=== PATIENT | male | born 1980 | race Caucasian/White ===

== ENCOUNTER 2021-04-16 16:38 | Emergency (ER) | payer OTHER, SELFPAY ==
[2021-04-16 16:50] VITALS: BP 123/82; PULSE 63; RESP 18; TEMP 36.4; O2SAT 100
--- NOTE | 2021-04-16 16:50 | ED.URI ---
HPI - URI/Sore Throat General Chief Complaint: Upper Respiratory Infection Stated Complaint: no smell/no taste/cough Time Seen by Provider: 04/16/21 16:50 Source: patient Mode of arrival: ambulatory Limitations: no limitations History of Present Illness HPI Narrative: Gerald Evans is a 40 yo male who was vaccinated on 04/06 who know is not feeling well after 04/09. No states that he has no sense of taste but is looking around for a Covid test-states he is gone to 3 places they were unable to give him a test today Related Data Allergies Allergy/AdvReac Type Severity Reaction Status Date / Time NKDA Allergy Unknown Uncoded 03/10/03 14:30 NO KNOWN DRUG ALLERGIES Allergy Y Uncoded 03/10/03 15:18 (Class Allergy) Review of Systems Review of Systems: CONSTITUTIONAL: Denies fever, chills, sweats. EYES: Denies visual changes, redness, discharge. ENT: Denies rhinorrhea, congestion, sore throat, otalgia. States loss of sense of taste CARDIOVASCULAR: Denies chest pain, palpitations, edema. RESPIRATORY: Denies dyspnea, wheezing, cough GASTROINTESTINAL: Denies abdominal pain, nausea, vomiting, diarrhea. GENITOURINARY: Denies dysuria, hematuria, abnormal discharge SKIN: Denies rash or itching. NEUROLOGIC: Denies numbness, or focal weakness. PSYCHIATRIC: Denies anxiety or depression. [facility] Past Medical History Medical History No acute medical problems Social History Social History (Updated 04/16/21 @ 17:01 by Migdalia Mesa CNP) Smoking status: Former smoker Substance use: current Living arrangements: with roommate(s) Occupation/Education: occupation Gender identity (if verbalized by the patient): Male Comments At time of signature, I agree with nursing past medical, surgical, social and family history. There is no relevant family history pertinent to the presenting complaint. Exam Narrative: GENERAL: This is a well-nourished, well-developed patient, in no distress. HEAD: normocephalic, atraumatic. EYES: PERRL. Sclera clear/white. Vision is grossly intact. EARS: External ears normal, . Hearing grossly intact. NOSE: External nose normal without nasal discharge, nares without redness, no rhinorrhea. THROAT: Mucous membranes moist, posterior pharynx pink NECK: Neck supple, CARDIOVASCULAR: Regular rate and rhythm without murmurs, gallops, or rubs. RESPIRATORY: Clear to auscultation. Breath sounds equal bilaterally. No wheezes, rales, or rhonchi. GASTROINTESTINAL: Abdomen soft, SKIN: warm, intact with no suspicious lesions or rash, good texture and turgor. NEURO: awake, alert, and oriented to person, place and time. There were no obvious focal neurologic abnormalities. Steady gait EXTREMITIES: Normal range of motion. BACK: Nontender without deformity Course Course Emergency Course: Patient comes to [facility] for Covid test because he is loss of sense of taste even though people in his household including his daughters are positive Rapid Covid negative, PCR sent Vital Signs Vital signs: Vital Signs Temperature 97.5 F L 04/16/21 16:50 Pulse Rate 63 04/16/21 16:50 Respiratory Rate 18 04/16/21 16:50 Blood Pressure 123/82 04/16/21 16:50 Pulse Oximetry 100 04/16/21 16:50 Temperature 97.5 F L 04/16/21 16:50 Pulse Rate 63 04/16/21 16:50 Respiratory Rate 18 04/16/21 16:50 Blood Pressure 123/82 04/16/21 16:50 Pulse Oximetry 100 04/16/21 16:50 MDM - URI/Sore Throat Differential Diagnosis Differential diagnosis: Likely upper respiratory infection, sinusitis, viral infection, influenza, pharyngitis and other Lab Data Labs: Lab Results 04/16/21 Range/Units 16:58 POC SARS CoV-2 Ag Negative (Negative) Critical Care Time Critical Care Time Critical Care Time: No Discharge Plan Discharge Clinical Impression: Contact with and (suspected) exposure to covid-19 Patient Disposition: Home, Self-C
[2021-04-18 13:58] LABS: SARS-CoV-2 RNA PCR Positive
== END 2021-04-16 17:22 | disposition home or self-care (01) ==
PROVIDERS: Emergency Provider Nurse Practitioner
DX: U07.1 COVID-19 (principal); Z87.891 Personal history of nicotine dependence
CPT/HCPCS: 87426; 99213; C9803; G0463; U0003; U0005

== ENCOUNTER 2022-12-12 16:26 | Emergency (ER) | payer OTHER, SELFPAY ==
--- NOTE | 2022-12-12 16:27 | ED.DENTAL ---
HPI - Dental/Oral General Chief complaint: Dental/Oral Stated complaint: Dental Pain Time Seen by Provider: 12/12/22 16:27 Source: patient Mode of arrival: ambulatory Limitations: no limitations History of Present Illness HPI Narrative: Gerald is a 42-year-old male patient presenting to the clinic today with complaints of dental pain times 1-2 days. He reports he was eating a m&m in the other night and felt as though this chipped his tooth. Has contacted his dentist and thinks it may be infected however he is not able to get in for 2 weeks Related Data Allergies Allergy/AdvReac Type Severity Reaction Status Date / Time NKDA Allergy Unknown Uncoded 03/10/03 14:30 NO KNOWN DRUG ALLERGIES Allergy Y Uncoded 03/10/03 15:18 (Class Allergy) Review of Systems Review of Systems: Pertinent positives per HPI. Patient denies any fever, chills, rash, headache, visual changes, dizziness, cough, runny nose, sore throat, shortness of breath, chest pain, palpitations, nausea, vomiting, diarrhea, constipation, abdominal pain, or any urinary issues. PMFSH Past Medical History Medical History No acute medical problems Social History Social History Smoking status: Former smoker Substance use: current Living arrangements: with roommate(s) Occupation/Education: occupation Gender identity (if verbalized by the patient): Male Comments At the time of my signature, I reviewed and agree with the nursing past medical, surgical, social, and family history. There is no relevant family history pertinent to the patient complaint. Exam Narrative: General: Well-developed, well nourished, in no apparent distress Head: Normocephalic, atraumatic Eyes: Pupils equally round and reactive to light bilaterally, EOM intact, sclera and conjunctive clear, no discharge, lids normal Ears: TMs intact and clear, ear canals clear, no drainage, grossly hearing normal. Nose: Nares patent, no discharge, no inflammation, no sinus tenderness. Mouth: Oropharynx without lesions or masses, poor dentition, MMM. Number 18 dental pain-cavity with infection Neck: Supple, trachea midline, no enlargement of anterior or posterior cervical nodes, no thyroid masses or goiter palpable. Cardio: Regular rate and rhythm, s1 and s2 normal, no murmur appreciated. Resp: Clear to auscultation bilaterally anteriorly and posteriorly, no rhonchi, rales, wheezing or rubs Course Course Emergency Course: Portions of this record may have been created with voice recognition software. Level of Care: Express Care Visit Vital Signs Vital signs: Vital Signs Temperature 36.6 C 12/12/22 16:35 Pulse Rate 63 12/12/22 16:35 Respiratory Rate 16 12/12/22 16:35 Blood Pressure 132/73 12/12/22 16:35 Pulse Oximetry 100 12/12/22 16:35 Oxygen Delivery Room Air 12/12/22 16:35 Temperature 36.6 C 12/12/22 16:35 Pulse Rate 63 12/12/22 16:35 Respiratory Rate 16 12/12/22 16:35 Blood Pressure 132/73 12/12/22 16:35 Pulse Oximetry 100 12/12/22 16:35 Oxygen Delivery Room Air 12/12/22 16:35 Vital signs reviewed MDM - Dental/Oral MDM Narrative Medical decision making narrative: At the time of visit patient is resting comfortably on exam table. I suspect patient has a fractured tooth with a dental infection. Prescription for amoxicillin was sent to pharmacy. Supportive measures were discussed with the patient and he voiced understanding discharge instructions and agrees to treatment plan. Differential Diagnosis Differential diagnosis: Likely dental caries, toothache, dental abscess and fracture of tooth Discharge Plan Discharge Clinical Impression: Dental infection Patient Disposition: Home, Self-Care Condition: Stable Instructions: Antibiotic Form, Toothache (ED) Additional Instructions: May apply heating
[2022-12-12 16:35] VITALS: BP 132/73; PULSE 63; RESP 16; TEMP 36.6; O2SAT 100
== END 2022-12-12 16:43 | disposition home or self-care (01) ==
PROVIDERS: Emergency Provider Nurse Practitioner Family
DX: K04.7 Periapical abscess without sinus (principal); Z87.891 Personal history of nicotine dependence
CPT/HCPCS: 99213; G0463

== ENCOUNTER 2023-05-05 11:34 | Emergency (ER) | payer OTHER, SELFPAY ==
[2023-05-05 11:41] VITALS: BP 124/83; PULSE 87; RESP 18; TEMP 37.4; O2SAT 99
--- NOTE | 2023-05-05 11:58 | PC.NURSE ---
documentation completed per glory frye rn and reviewed
--- NOTE | 2023-05-05 12:02 | ED.DENTAL ---
HPI - Dental/Oral General Chief complaint: Dental/Oral Stated complaint: Dental Pain Time Seen by Provider: 05/05/23 11:45 Source: patient Mode of arrival: ambulatory Limitations: no limitations History of Present Illness HPI Narrative: Gerald is a 42-year-old male patient presenting to the clinic today with complaints of left lower jaw dental pain. He reports over the last few days his jaws become more swollen and thinks he may have a dental infection. Was seen back in January of this past year for a dental infection to the same tooth. Has not yet seen a dentist. No fever Related Data Allergies Allergy/AdvReac Type Severity Reaction Status Date / Time NKDA Allergy Unknown Uncoded 03/10/03 14:30 NO KNOWN DRUG ALLERGIES Allergy Y Uncoded 03/10/03 15:18 (Class Allergy) Review of Systems Review of Systems: Pertinent positives per HPI. Patient denies any fever, chills, rash, headache, visual changes, dizziness, cough, runny nose, sore throat, shortness of breath, chest pain, palpitations, nausea, vomiting, diarrhea, constipation, abdominal pain, or any urinary issues. PMFSH Past Medical History Medical History No acute medical problems Social History Social History Smoking status: Former smoker Substance use: current Living arrangements: with roommate(s) Occupation/Education: occupation Gender identity (if verbalized by the patient): Male Comments At the time of my signature, I reviewed and agree with the nursing past medical, surgical, social, and family history. There is no relevant family history pertinent to the patient complaint. Exam Narrative: General: Well-developed, well nourished, in no apparent distress Head: Normocephalic, atraumatic Eyes: Pupils equally round and reactive to light bilaterally, EOM intact, sclera and conjunctive clear, no discharge, lids normal Ears: TMs intact and clear, ear canals clear, no drainage, grossly hearing normal. Nose: Nares patent, no discharge, no inflammation, no sinus tenderness. Mouth: Oropharynx without lesions or masses, poor dentition, MMM. Decayed 18 with dental abscess-swelling noted into the jaw and neck Neck: Supple, trachea midline, no enlargement of anterior or posterior cervical nodes, no thyroid masses or goiter palpable. Cardio: Regular rate and rhythm, s1 and s2 normal, no murmur appreciated. Resp: Clear to auscultation bilaterally anteriorly and posteriorly, no rhonchi, rales, wheezing or rubs Course Course Emergency Course: Portions of this record may have been created with voice recognition software. Level of Care: Express Care Visit Vital Signs Vital signs: Vital Signs Temperature 37.4 C 05/05/23 11:41 Pulse Rate 87 05/05/23 11:41 Respiratory Rate 18 05/05/23 11:41 Blood Pressure 124/83 05/05/23 11:41 Pulse Oximetry 99 05/05/23 11:41 Oxygen Delivery Room Air 05/05/23 11:41 Temperature 37.4 C 05/05/23 11:41 Pulse Rate 87 05/05/23 11:41 Respiratory Rate 18 05/05/23 11:41 Blood Pressure 124/83 05/05/23 11:41 Pulse Oximetry 99 05/05/23 11:41 Oxygen Delivery Room Air 05/05/23 11:41 Vital signs reviewed MDM - Dental/Oral MDM Narrative Medical decision making narrative: At the time of visit patient is resting comfortably on the exam table. I suspect patient has a dental abscess. Offered to do aspiration drainage of the dental abscess and patient declined at this time. Will place patient on Augmentin supportive measures were discussed with the patient and he voiced understanding of discharge instructions agrees to treatment plan. Red flag symptoms were reviewed with the patient. Differential Diagnosis Differential diagnosis: Likely gingival abscess, dental caries, toothache, dental abscess, fracture of tooth and aphthous ulcer Discharge Plan Discharg
== END 2023-05-05 12:11 | disposition home or self-care (01) ==
PROVIDERS: Emergency Provider Nurse Practitioner Family
DX: K04.7 Periapical abscess without sinus (principal); Z87.891 Personal history of nicotine dependence
CPT/HCPCS: 99213; G0463

== ENCOUNTER 2023-05-06 11:40 | Emergency (ER) | payer OTHER, SELFPAY ==
--- NOTE | 2023-05-06 11:43 | ED.DENTAL ---
HPI - Dental/Oral General Chief complaint: Dental/Oral Stated complaint: Dental Pain Time Seen by Provider: 05/06/23 11:41 Source: patient Mode of arrival: ambulatory Limitations: no limitations History of Present Illness HPI Narrative: Mr. Mcintyre is a 42-year-old male patient presenting to the clinic today with complaints of dental abscess. I saw this patient yesterday for dental abscess and offered to drain the abscess and he declined at that time. He is returning today requesting it to be drained. Related Data Allergies Allergy/AdvReac Type Severity Reaction Status Date / Time No Known Allergies Allergy Verified 05/06/23 11:45 Review of Systems Review of Systems: Pertinent positives per HPI. Patient denies any fever, chills, rash, headache, visual changes, dizziness, cough, runny nose, sore throat, shortness of breath, chest pain, palpitations, nausea, vomiting, diarrhea, constipation, abdominal pain, or any urinary issues. PMFSH Past Medical History Medical History No acute medical problems Social History Social History Smoking status: Former smoker Substance use: current Living arrangements: with roommate(s) Occupation/Education: occupation Gender identity (if verbalized by the patient): Male Comments At the time of my signature, I reviewed and agree with the nursing past medical, surgical, social, and family history. There is no relevant family history pertinent to the patient complaint. Exam Narrative: General: Well-developed, well nourished, in no apparent distress Head: Normocephalic, atraumatic Eyes: Pupils equally round and reactive to light bilaterally, EOM intact, sclera and conjunctive clear, no discharge, lids normal Ears: TMs intact and clear, ear canals clear, no drainage, grossly hearing normal. Nose: Nares patent, no discharge, no inflammation, no sinus tenderness. Mouth: Oropharynx without lesions or masses, poor dentition, MMM. Fractured number 18 tooth with dental abscess-total abscess was worse appearing yesterday and has improved some today. Attempted aspiration of dental abscess without success. Neck: Supple, trachea midline, no enlargement of anterior or posterior cervical nodes, no thyroid masses or goiter palpable. Cardio: Regular rate and rhythm, s1 and s2 normal, no murmur appreciated. Resp: Clear to auscultation bilaterally anteriorly and posteriorly, no rhonchi, rales, wheezing or rubs Course Course Emergency Course: Portions of this record may have been created with voice recognition software. Level of Care: Express Care Visit Vital Signs Vital signs: Vital signs reviewed Procedures Abscess I/D Dental abscess: Date of Incision: 05/06/23 Abcess I&D Additional Comments: Attempted dental abscess aspiration using an 18 gauge needle and a 5 mL syringe to the left lower jaw posterior molar without success MDM - Dental/Oral MDM Narrative Medical decision making narrative: At the time of visit patient is resting comfortably on the exam table. Rocephin 1 g IM given in the clinic today. Patient is to continue Augmentin and call the dentist to be evaluated as soon as possible. Supportive measures were discussed with the patient he voiced understanding discharge instructions and agrees to treatment plan. Differential Diagnosis Differential diagnosis: Likely gingival abscess, dental caries, toothache and dental abscess Discharge Plan Discharge Clinical Impression: Dental abscess Patient Disposition: Home, Self-Care Condition: Stable Instructions: Antibiotic Form, Dental Abscess (ED) Additional Instructions: Attempted dental abscess drainage without success. Rocephin 1 g IM given in the clinic today Continue taking Augmentin as prescribed May take Tylenol/Motrin as needed for pain Follow-up with
[2023-05-06 11:45] VITALS: BP 127/78; PULSE 81; RESP 16; TEMP 37.1; O2SAT 99
[2023-05-06] MEDS: cefTRIAXone 1 GM, LIDOCAINE HCL 1% LOCAL INJ 2.1 ML IM (11:55)
== END 2023-05-06 12:04 | disposition home or self-care (01) ==
PROVIDERS: Emergency Provider Nurse Practitioner Family
DX: K04.7 Periapical abscess without sinus (principal); Z87.891 Personal history of nicotine dependence
CPT/HCPCS: 96372; 99213; G0463; J0696

== ENCOUNTER 2023-10-18 11:52 | Emergency (ER) | payer OTHER, SELFPAY ==
--- NOTE | 2023-10-18 11:59 | ED.DENTAL ---
HPI - Dental/Oral General Chief complaint: Dental/Oral Stated complaint: tooth pain left side Time Seen by Provider: 10/18/23 11:55 Source: patient Mode of arrival: ambulatory Limitations: no limitations History of Present Illness HPI Narrative: Patient is a 42-year-old male who presents with left lower dental pain that started yesterday. Patient has had broken tooth and infection in the past. Patient unable to see dentist at this time. Denies any ear pain, fever, chills, nausea, vomiting, diarrhea. Related Data Allergies Allergy/AdvReac Type Severity Reaction Status Date / Time No Known Allergies Allergy Verified 10/18/23 12:02 Review of Systems Review of Systems: All systems reviewed & are unremarkable except as noted in HPI and below Constitutional: Constitutional: Denies body ache(s), Denies fever(s), Denies headache(s), Denies malaise and Denies weakness Eyes: Eyes: Denies loss of vision ENT: Denies otalgia, Reports facial pain (jaw), Denies headache(s), Denies nasal discharge, Denies sinus pain and Denies sore throat Cardiovascular: Cardiovascular: Denies chest pain, Denies irregular heart rhythm and Denies dyspnea Respiratory: Respiratory: Denies dyspnea Gastrointestinal: Gastrointestinal: Denies abdominal pain, Denies melena, Denies hematochezia, Denies diarrhea, Denies nausea and Denies vomiting Musculoskeletal: Musculoskeletal: Denies back pain, Denies myalgias and Denies arthralgias Integumentary/Breasts: Skin/Breast: Denies pruritus and Denies rash Neurologic: Denies headache(s), Denies loss of vision and Denies weakness Psychiatric: Psychiatric: Reports no additional psychiatric complaints PMFSH Past Medical History Medical History No acute medical problems Social History Social History Smoking status: Former smoker Substance use: current Living arrangements: with roommate(s) Occupation/Education: occupation Gender identity (if verbalized by the patient): Male Comments At time of signature, agree with nursing past medical, surgical, social and family history. There is no relevant family history pertinent to the presenting complaint. Exam Const: General: cooperative, healthy appearing, comfortable, no acute distress and well nourished Nutritional Appearance: well nourished Orientation/consciousness: patient oriented x3 Limitations: no limitations HENMT: Head: normal to inspection, normocephalic and atraumatic Ears: hearing grossly normal bilaterally, external ears normal, TM's normal bilaterally and mastoids normal bilaterally Face/Nose/Sinus: Normal external nose present, normal facial exam and face symmetric Face and sinus: normal facial exam and face symmetric Mouth: Yes Normal oral and palatal mucosa present, Yes lip normal, Yes tongue normal, Yes Normal salivary glands and ducts present and Yes moist mucous membranes Teeth and gingiva: abnormal tooth and associated gingiva lower left second molar tender and dentin fractured and fair dentition Teeth image: 1. broken tooth Eyes: General: appearance normal, both eyes and all related structures Alignment and Position: alignment normal and position normal Periorbital: periorbital findings normal Eyelids: eyelids normal Pupils: Equal, round and reactive pupils present EOM: EOMs intact bilaterally Neck: Neck: normal visual inspection, full ROM, no lymphadenopathy and supple Chest: Chest palpation & inspection: normal inspection of the chest Resp: Effort & Inspection: normal respiratory effort and able to speak in complete sentences Auscultation: clear to auscultation bilaterally Cardio: Rate: regular rate Rhythm: regular rhythm Heart sounds: S1 normal heart sound present and S2 normal heart sound present GI: Inspection: normal to inspection Skin: General skin exam: normal color and no rashes or lesions n
[2023-10-18 12:03] VITALS: BP 150/81; PULSE 57; RESP 16; TEMP 37.1; O2SAT 99
== END 2023-10-18 12:33 | disposition home or self-care (01) ==
PROVIDERS: Emergency Provider Nurse Practitioner Family
DX: K04.7 Periapical abscess without sinus (principal); Z87.891 Personal history of nicotine dependence
CPT/HCPCS: 99213; G0463

== ENCOUNTER 2023-10-26 03:59 | Emergency (ER) | payer OTHER, SELFPAY ==
--- NOTE | ~2023-10-26 | CT_ITS ---
CT of the Abdomen and Pelvis: Indication: Abdominal pain Technique: 2.5 mm axial scans were obtained through the abdomen and pelvis following intravenous adm inistration of 100 cc of Omnipaque 350. Dose reduction technique was used on this scan by utilizing a utomated exposure control and iterative reconstruction technique. The dose-length product (DLP) was 7 81.39 mGy-cm. Findings: Scans through the lung bases are unremarkable. The liver, spleen, pancreas, gallbladder, adrenals and kidneys are within normal limits. No evidence of aortic aneurysm. No lymphadenopathy. No bowel obstruction or bowel wall thickening. There is no evidence to suggest acute appendicitis. Images through the pelvis were performed. Urinary bladder unremarkable. No pelvic mass seen. No ascit es. Small bilateral fat-containing hernias are present. Impression: Small bilateral fat-containing inguinal hernias. Reviewed, dictated and finalized at [facility]. CONTROLLER Impression: Small bilateral fat-containing inguinal hernias.
[2023-10-26 04:02] VITALS: BP 142/82; PULSE 88; RESP 16; TEMP 36.7; O2SAT 100
[2023-10-26 04:26] LABS: Basophils Percent Auto 0.2 % (0.2-1.2); Eosinophils Percent Auto 0.1 % (0-4.4); Hematocrit 38.8 % (42.0-52.0); Hemoglobin 12.8 g/dL (14.0-18.0); Immature Granulocyte Absolute 0.04 K/mm3 (0.00-0.031); Immature Granulocyte Percent A 0.4 % (0-0.5); Lymphocytes Absolute Auto 1.43 K/mm3 (0.9-3.2); Lymphocytes Percent Auto 13.3 % (18.3-44.2); Mean Corpuscular Hemoglobin 31.9 pg (26-34); Mean Corpuscular Volume 96.8 fl (80-100); Mean Platelet Volume 9.6 fl (7.4-10.4); Monocytes Absolute Auto 0.3 K/mm3 (0.1-0.6); Monocytes Percent Auto 2.6 % (2.6-8.5); Neutrophils Percent Auto 83.4 % (45.5-73.1); Platelet Count Result 334 k/mm3 (150-375); Red Blood Count 4.01 M/mm3 (4.6-6.20); Red Cell Distribution Width 12.2 % (11.5-14.5); White Blood Count 10.8 K/mm3 (4.5-10.0)
[2023-10-26 04:41] LABS: Appearance Urine Turbid (Clear); Bacteria Urine None Seen /hpf; Bilirubin Urine Negative (Negative); Blood Urine Trace (Negative); Color Urine Yellow (Yellow); Glucose Urine UA Negative (Negative); Ketones Urine 4+ mg/dL (Negative); Leukocyte Esterase Ur Negative LEU/UL (Negative); Mucus Urine Present /lpf; Need Manual Microscopic Reviewed; Nitrate Urine Negative (Negative); Protein Urine 1+ mg/dL (Negative); Specific Grav Ur 1.027 (1.001-1.035); Squamous Epithelial Cell Urine None seen /hpf (Few); Urobilinogen Urine 0.2 mg/dL (<2.0); WBC Urine 0-5 /hpf
[2023-10-26 04:43] LABS: Add Urine Microscopic? YES
--- NOTE | 2023-10-26 05:18 | ED.GENADULT ---
HPI - General Adult General Chief complaint: Nausea/Vomiting/Diarrhea Stated complaint: I think I have an ulcer, vomiting Time Seen by Provider: 10/26/23 05:02 History of Present Illness HPI narrative: Patient is a 43-year-old gentleman who presents emergency department with chief complaint of abdominal pain nausea vomiting. Patient reports that he is currently on Augmentin for a dental infection and 8 q.day elbow yesterday patient reports that started having nausea and vomiting immediately after eating and reports that he has pain in the epigastric region. The patient reports that he has not been able to keep anything down reports that he feels extremely dehydrated. Patient reports no prior abdominal surgeries reports no fever Related Data Allergies Allergy/AdvReac Type Severity Reaction Status Date / Time No Known Allergies Allergy Verified 10/18/23 12:02 Review of Systems Review of Systems: A 10 system review of systems was completed on the patient and is negative except for what is stated in the HPI. Nursing and ancillary documentation was reviewed. [facility] Past Medical History Medical History No acute medical problems Social History Social History Smoking status: Former smoker Substance use: current Living arrangements: with roommate(s) Occupation/Education: occupation Gender identity (if verbalized by the patient): Male Exam Narrative: GENERAL: Well-appearing, well-nourished, and in no acute distress. HEAD: Normocephalic, atraumatic. EYES: PERRLA and EOMI. ENT: Nares clear, no rhinorrhea or epistaxis. Mucous membranes moist. NECK: Supple. CHEST: Clear to auscultation. No respiratory distress. HEART: Regular rate and rhythm. No murmur heard. Normal peripheral pulses. ABDOMEN: Soft, tenderness to palpation in the epigastric region, nondistended, normal active bowel sounds. EXTREMITIES: Normal range of motion. No edema. SKIN: Warm, dry, no rash. NEURO: No focal deficits. Alert and oriented x3. PSYCH: Normal mood and affect. Course Vital Signs Vital signs: Vital Signs Temperature 36.7 C 10/26/23 04:02 Pulse Rate 88 10/26/23 04:02 Respiratory Rate 16 10/26/23 04:02 Blood Pressure 142/82 H 10/26/23 04:02 Pulse Oximetry 100 10/26/23 04:02 Oxygen Delivery Room Air 10/26/23 04:02 Temperature 36.7 C 10/26/23 04:02 Pulse Rate 88 10/26/23 04:02 Respiratory Rate 16 10/26/23 04:02 Blood Pressure 142/82 H 10/26/23 04:02 Pulse Oximetry 100 10/26/23 04:02 Oxygen Delivery Room Air 10/26/23 04:02 Medical Decision Making MDM Narrative Medical decision making narrative: Differential diagnosis is gastroenteritis, gastritis, colitis, diverticulitis Laboratory studies were obtained on the patient showed a white count 10.8 electrolytes within normal limits urinalysis showed 11-20 RBCs in the urine but otherwise no white blood cells CT scan of the abdomen pelvis showed no acute abnormality Patient received IV fluids antiemetics and antispasmodics. Patient be discharged home on Zofran Bentyl Protonix Vital Signs Vital Signs: Vital Signs Temperature 36.7 C 10/26/23 04:02 Pulse Rate 88 10/26/23 04:02 Respiratory Rate 16 10/26/23 04:02 Blood Pressure 142/82 H 10/26/23 04:02 Pulse Oximetry 100 10/26/23 04:02 Oxygen Delivery Room Air 10/26/23 04:02 Temperature 36.7 C 10/26/23 04:02 Pulse Rate 88 10/26/23 04:02 Respiratory Rate 16 10/26/23 04:02 Blood Pressure 142/82 H 10/26/23 04:02 Pulse Oximetry 100 10/26/23 04:02 Oxygen Delivery Room Air 10/26/23 04:02 Lab Data 10/26/23 04:13 10/26/23 04:13 Labs: Lab Results 10/26/23 Range/Units 04:13 WBC 10.8 H (4.5-10.0) K/mm3 RBC 4.01 L (4.6-6.20) M/mm3 Hgb 12.8 L (14.0-18.0) g/dL Hct 38.8
[2023-10-26] MEDS: PANTOPRAZOLE SODIUM IV 40 MG VIAL IV PUSH (05:22)
[2023-10-26] MEDS: ONDANSETRON INJ 4 MG/2 ML VIAL IV PUSH (05:22)
[2023-10-26] MEDS: SODIUM CHLORIDE 0.9% IV 1,000 ML 999 ML IV CONT (05:22)
[2023-10-26] MEDS: DICYCLOMINE HCL INJ 20 MG/2 ML VIAL IM (05:22)
[2023-10-26 05:24] LABS: Alanine Aminotransferase 24 U/L (6-50); Albumin Level 4.5 g/dL (3.5-5.1); Alkaline Phosphatase 83 U/L (38-126); Aspartate Amino Transferase 34 U/L (17-59); Bilirubin,Total 1.1 mg/dL (0.2-1.3); Blood Urea Nitrogen 14 mg/dL (9-20); Calcium 9.8 mg/dL (8.4-10.2); Chloride 101 mmol/L (98-107); Estimated CRCL calculation 115 ml/min; Estimated Glomerular Filt Rate > 60; Glucose 135 mg/dL (65-110); Lipase 42 U/L (23-300); Potassium 3.7 mmol/L (3.4-5.0); Sodium 135 mmol/L (137-145)
[2023-10-26 05:32] LABS: Anion Gap 11 mmol/L (8-16); Carbon Dioxide 23 mmol/L (22-30)
[2023-10-26 07:26] VITALS: BP 133/73; PULSE 74; RESP 18; O2SAT 100
== END 2023-10-26 07:28 | disposition home or self-care (01) ==
PROVIDERS: Emergency Provider Emergency Medicine
DX: K29.70 Gastritis, unspecified, without bleeding (principal); Z87.891 Personal history of nicotine dependence; K40.20 Bilateral inguinal hernia, without obstruction or gangrene, not specified as recurrent
CPT/HCPCS: 36415; 74177; 80053; 81001; 83690; 85025; 96361; 96372; 96374; 96375; 99284; C9113; J0500; J2405; J7030; Q9967

== ENCOUNTER 2023-12-04 12:03 | Emergency (ER) | payer OTHER, SELFPAY ==
[2023-12-04 12:26] VITALS: BP 145/80; PULSE 65; RESP 16; TEMP 36.7; O2SAT 100
--- NOTE | 2023-12-04 12:32 | ED.EXTPRO ---
HPI - Extremity Problem General Chief complaint: Extremity Injury, Lower Stated complaint: left foot pain Time Seen by Provider: 12/04/23 12:45 Source: patient Mode of arrival: ambulatory Limitations: no limitations History of Present Illness HPI Narrative: Gerald is a 43-year-old male patient presenting to the clinic today with complaints of left heel pain. He reports he was wearing an old pair steel-toed boots and the back of the boots broke and rubbed on the back of his heel. He reports pain to the plantar posterior heel. Pain is only when walking. Denies any injury Related Data Allergies Allergy/AdvReac Type Severity Reaction Status Date / Time No Known Allergies Allergy Verified 12/04/23 12:10 Review of Systems Review of Systems: Pertinent positives per HPI. Patient denies any fever, chills, rash, headache, visual changes, dizziness, cough, runny nose, sore throat, shortness of breath, chest pain, palpitations, nausea, vomiting, diarrhea, constipation, abdominal pain, or any urinary issues. [facility] Past Medical History Medical History No acute medical problems Social History Social History Smoking status: Former smoker Substance use: current Living arrangements: with roommate(s) Occupation/Education: occupation Gender identity (if verbalized by the patient): Male Comments At the time of my signature, I reviewed and agree with the nursing past medical, surgical, social, and family history. There is no relevant family history pertinent to the patient complaint. Exam Narrative: General: Well-developed, well nourished, in no apparent distress Head: Normocephalic, atraumatic. Cardio: Regular rate and rhythm, s1 and s2 normal, no murmur appreciated. Resp: Clear to auscultation bilaterally, no rhonchi, rales, wheezing or rubs. Musculoskeletal: No deformity, non-tender to palpation, pain with bearing weight to the posterior plantar heel, grossly normal range of motion, muscle strength strong and equal, peripheral pulse strong, no edema, no cyanosis, normal gait and station Course Course Emergency Course: Portions of this record may have been created with voice recognition software. Level of Care: Express Care Visit Vital Signs Vital signs: Vital Signs Temperature 36.7 C 12/04/23 12:26 Pulse Rate 65 12/04/23 12:26 Respiratory Rate 16 12/04/23 12:26 Blood Pressure 145/80 H 12/04/23 12:26 Pulse Oximetry 100 12/04/23 12:26 Oxygen Delivery Room Air 12/04/23 12:26 Temperature 36.7 C 12/04/23 12:26 Pulse Rate 65 12/04/23 12:26 Respiratory Rate 16 12/04/23 12:26 Blood Pressure 145/80 H 12/04/23 12:26 Pulse Oximetry 100 12/04/23 12:26 Oxygen Delivery Room Air 12/04/23 12:26 Vital signs reviewed Discharge Plan Discharge Clinical Impression: Inflammatory heel pain Patient Disposition: Home, Self-Care Condition: Stable Instructions: Antibiotic Form Additional Instructions: Rest, ice, and elevate Take naproxen as prescribed Follow-up with your pediatric physician as scheduled Prescriptions: New naproxen 500 mg tablet 500 mg PO BID PRN (Reason: pain) 7 Days Qty: 14 0RF No Action dicyclomine 20 mg tablet 20 mg PO QID PRN (Reason: abdominal discomfort) Qty: 20 0RF ondansetron 4 mg tablet,disintegrating 4 mg PO Q8H PRN (Reason: nausea and vomiting) Qty: 10 0RF pantoprazole [Protonix] 40 mg tablet,delayed release (DR/EC) 40 mg PO HS 28 Days Qty: 28 0RF Follow-up/Referrals: PHYSICIAN,[employer] TECHNICIAN [Primary Care Provider] - Time of Disposition: 12:53 Quality NIHSS Nursing Documentation ED NIHSS nursing documentation: reviewed/agree
== END 2023-12-04 13:00 | disposition home or self-care (01) ==
PROVIDERS: Emergency Provider Nurse Practitioner Family
DX: M79.672 Pain in left foot (principal)
CPT/HCPCS: 99213; G0463